=== PATIENT | male | born 1970 | race African-American/Black ===

== ENCOUNTER 2019-11-20 16:28 | Inpatient (IN) | payer MEDICAID ==
[~2019-11-20] VITALS: Ht 182.9 cm; Wt 79.5 kg
[2019-11-20] MEDS ORDERED: acetaminophen 325mg tablet PO STA (16:48)
[2019-11-20] MEDS ORDERED: normal saline 1000ML IV soln IV ONE (16:50)
[2019-11-20] MEDS ORDERED: CefTRIAXone 2gm/D5W 50ml 50 ML IV ONE (16:50)
[2019-11-20] MEDS ORDERED: azithromycin/NS 500mg/250ml 250 ML IV ONE (17:20)
[2019-11-20] MEDS ORDERED: dexamethasone sod phosphate 10mg/ml inj IV STA (17:35)
[2019-11-20 17:55] LABS: BASOPHILS # (AUTO) 0.1 X10'3 (0-0.2); BASOPHILS % (AUTO) 0.4 % (0-1); EOSINOPHILS % (AUTO) 0 % (0-6); HEMATOCRIT 32.5 % (42.0-52.0); HEMOGLOBIN 11.1 g/dl (14.0-17.9); LYMPHOCYTES # (AUTO) 1.3 X10'3 (1.1-4.8); LYMPHOCYTES % (AUTO) 8.6 % (21-51); MEAN CORPUSCULAR HEMOGLOBIN 31.7 PG (27.0-31.0); MEAN CORPUSCULAR VOLUME 93.2 FL (78-98); MEAN PLATELET VOLUME 7.3 FL (7.4-10.4); MONOCYTES # (AUTO) 2.1 X10'3 (0-0.9); NEUTROPHILS # (AUTO) 11.8 X10'3 (1.8-7.7); PLATELET COUNT 242 X10'3 (140-440); RED BLOOD COUNT 3.49 X10'6 (4.70-6.10); RED CELL DISTRIBUTION WIDTH 13.5 % (11.5-14.5); WHITE BLOOD COUNT 15.3 X10'3 (4.5-11.0)
[2019-11-20 18:05] LABS: ALANINE AMINOTRANSFERASE 44 U/L (12-78); ALBUMIN 2.5 G/DL (3.4-5.0); ALBUMIN/GLOBULIN RATIO 0.5 (1.1-1.5); ALKALINE PHOSPHATASE 70 IU/L (46-116); ANION GAP 12 (8-16); ASPARTATE AMINO TRANSFERASE 50 U/L (10-37); BILIRUBIN,TOTAL 0.8 MG/DL (0.1-1.0); BLOOD UREA NITROGEN 11 MG/DL (7-18); CALCIUM 8.7 MG/DL (8.5-10.1); CHLORIDE 94 MMOL/L (99-107); CREATININE 1.37 MG/DL (0.60-1.10); GLUCOSE 109 MG/DL (70-104); POTASSIUM 3.2 MMOL/L (3.5-5.1); SODIUM 131 MMOL/L (135-145); TOTAL CARBON DIOXIDE 25.3 MMOL/L (24-32); TOTAL PROTEIN 7.2 G/DL (6.4-8.2); eGFR 55 ML/MIN
[2019-11-20] MEDS ORDERED: NO HOME MEDS (19:33)
[2019-11-20] MEDS ORDERED: ipratropium/albuterol 3ml nebule NEB ONE (20:05)
[2019-11-20] MEDS ORDERED: methylPREDNISolone sod succ 125mg/2ml vial IV ONE (20:05)
[2019-11-20] MEDS ORDERED: magnesium hydroxide 30ml (MOM) UD suspension PO PRN (20:15)
[2019-11-20] MEDS ORDERED: acetaminophen 325mg tablet PO PRN (20:15)
[2019-11-20] MEDS ORDERED: ondansetron/PF 4mg/2ml inj IV PRN (20:15)
[2019-11-20] MEDS ORDERED: mag hydrox/Alum hydrox/simeth 30ml oral suspension PO PRN (20:15)
[2019-11-20] MEDS ORDERED: potassium Cl 20 mEq SR tablet PO PRN (20:15)
[2019-11-20] MEDS ORDERED: potassium CL 10mEq/100ml bag 100 ML IV PRN ×2 (20:15)
[2019-11-20 20:40] LABS: CLARITY,URINE CLEAR (Clear); COLOR,URINE STRAW (Yellow); GLUCOSE, URINE NEGATIVE (Neg); KETONES,URINE NEGATIVE (Neg); LEUKOCYTE ESTERASE ,URINE NEGATIVE (Neg); NITRITES, URINE NEGATIVE (Neg); OCCULT BLOOD,URINE SMALL (Neg); PROTEIN,URINE NEGATIVE (Neg); UROBILINOGEN,URINE 0.2 E.U/dL (0.2-1.0)
[2019-11-20 20:41] LABS: UA COLLECTION TYPE NON-SPECIFIED
[2019-11-20 20:47] LABS: BACTERIA,URINE NONE SEEN /HPF (Neg); RBC,URINE 0-2 /HPF (0-2); SQUAMOUS EPITHELIAL CELL,UR FEW /LPF (FEW); WBC,URINE NONE SEEN /HPF (0-4)
[2019-11-20] MEDS: normal saline 1000ml 1,000 ML IV SCH (21:03)
--- NOTE | 2019-11-20 22:45 | NUR ---
Patient in room ORTHO 4006. I have received report from Bennie PEREZ and had the opportunity to ask questions and assume patient care.
[2019-11-20 23:00] VITALS: BP 120/71
--- NOTE | 2019-11-20 23:00 | NUR ---
Pt to the floor
[2019-11-20 23:46] LABS: URINE AMPHETAMINE SCREEN POSITIVE (Neg); URINE BARBITUATE SCREEN NEGATIVE (Neg); URINE BENZODIAZEPINES SCREEN NEGATIVE (Neg); URINE CANNABINOID SCREEN NEGATIVE (Neg); URINE COCAINE SCREEN NEGATIVE (Neg); URINE METHADONE SCREEN NEGATIVE (Neg); URINE OPIATE SCREEN NEGATIVE (Neg); URINE PHENCYCLIDINE SCREEN NEGATIVE (Neg)
[2019-11-21] MEDS: potassium Cl 20 mEq SR tablet PO PRN ×3 (02:40→20:35)
[2019-11-21] MEDS: normal saline 1000ml 1,000 ML IV SCH ×3 (06:15→22:00)
--- NOTE | 2019-11-21 06:37 | NUR ---
Patient in room ORTHO 4006. I have received report from Issa PEREZ and had the opportunity to ask questions and assume patient care.
--- NOTE | 2019-11-21 06:40 | NUR ---
Javier Boss called regarding repeat COVID, he is going to contact Dr. Chavez/Dr. Webb and let me know if it is necessary.
[2019-11-21 07:00] VITALS: BP 121/69
[2019-11-21] MEDS: heparin, porcine 5000 units/ml vial SQ SCH ×2 (07:27→20:36)
[2019-11-21] MEDS ORDERED: K and/or MAG REPLACEMENT MC SCH (08:00)
--- NOTE | 2019-11-21 08:07 | NUR ---
FAITH sent to lab.
[2019-11-21] MEDS ORDERED: pneumococcal 23-VAL P-sac vacc 25 mcg/0.5ml vial IMVAC ONE (10:00)
--- NOTE | 2019-11-21 10:02 | NUR ---
PAGER ID: [phone] MESSAGE: [id number] Rocky Junior Patient has gram positive cocci pair and chains blood cultures in AEROBIC bottle Clara [id number]
[2019-11-21] MEDS ORDERED: magnesium Cl slow-release 64mg tablet PO PRN (10:45)
[2019-11-21] MEDS ORDERED: magnesium 4gm in 100ml NS 100 ML IV PRN (10:45)
[2019-11-21] MEDS: ipratropium/albuterol 3ml nebule NEB SCH ×3 (12:38→20:13)
[2019-11-21] MEDS: methylPREDNISolone sod succ/PF 40mg inj. IV SCH ×2 (17:10→20:36)
[2019-11-21] MEDS: CefTRIAXone/D5W-Rocephin 1gm 50 ML IV SCH (17:10)
[2019-11-21] MEDS: azithromycin 250mg tablet PO SCH (17:11)
[2019-11-21 18:00] VITALS: BP 113/78
--- NOTE | 2019-11-21 18:35 | NUR ---
Patient in room ORTHO 4006. I have received report from Clara PEREZ and had the opportunity to ask questions and assume patient care.
--- NOTE | 2019-11-21 18:53 | NUR ---
Problems reprioritized. Patient report given, questions answered & plan of care reviewed with Issa PEREZ.
[2019-11-21] MEDS: K and/or MAG REPLACEMENT MC SCH (20:00)
[2019-11-21] MEDS: lactobacillus rhamnosus 10,000 MMU CELLS/CAPSULE PO SCH (20:36)
[2019-11-21 22:00] VITALS: BP 116/42
[2019-11-22] MEDS: ipratropium/albuterol 3ml nebule NEB SCH ×7 (00:06→23:21)
[2019-11-22] MEDS: methylPREDNISolone sod succ/PF 40mg inj. IV SCH ×4 (03:03→19:58)
[2019-11-22] MEDS: normal saline 1000ml 1,000 ML IV SCH ×3 (03:04→18:00)
[2019-11-22 06:10] VITALS: BP 120/50
--- NOTE | 2019-11-22 06:31 | NUR ---
Problems reprioritized. Patient report given, questions answered & plan of care reviewed with Kalie PEREZ.
[2019-11-22 06:39] LABS: BASOPHILS % (AUTO) 0.1 % (0-1); EOSINOPHILS % (AUTO) 0.1 % (0-6); HEMATOCRIT 31.4 % (42.0-52.0); HEMOGLOBIN 10.5 g/dl (14.0-17.9); LYMPHOCYTES # (AUTO) 0.6 X10'3 (1.1-4.8); LYMPHOCYTES % (AUTO) 3.8 % (21-51); MEAN CORPUSCULAR HEMOGLOBIN 31.7 PG (27.0-31.0); MEAN CORPUSCULAR HGB CONC 33.3 g/dL (33.0-36.5); MEAN CORPUSCULAR VOLUME 95.2 FL (78-98); MEAN PLATELET VOLUME 7.2 FL (7.4-10.4); MONOCYTES # (AUTO) 0.8 X10'3 (0-0.9); MONOCYTES % (AUTO) 4.8 % (2-12); NEUTROPHILS # (AUTO) 14.5 X10'3 (1.8-7.7); NEUTROPHILS % (AUTO) 91.2 % (42-75); PLATELET COUNT 286 X10'3 (140-440); RED CELL DISTRIBUTION WIDTH 13.6 % (11.5-14.5); WHITE BLOOD COUNT 15.9 X10'3 (4.5-11.0)
--- NOTE | 2019-11-22 06:44 | NUR ---
Patient in room ORTHO 4013. I have received report from Issa PEREZ and had the opportunity to ask questions and assume patient care.
[2019-11-22 06:54] LABS: ALANINE AMINOTRANSFERASE 40 U/L (12-78); ALBUMIN/GLOBULIN RATIO 0.5 (1.1-1.5); ALKALINE PHOSPHATASE 69 IU/L (46-116); ANION GAP 9 (8-16); ASPARTATE AMINO TRANSFERASE 19 U/L (10-37); BILIRUBIN,TOTAL 0.1 MG/DL (0.1-1.0); BLOOD UREA NITROGEN 13 MG/DL (7-18); BUN/CREATININE RATIO 11.4 (5.4-32.0); CALCIUM 8.7 MG/DL (8.5-10.1); CHLORIDE 108 MMOL/L (99-107); CREATININE 1.14 MG/DL (0.60-1.10); GLUCOSE 162 MG/DL (70-104); MAGNESIUM 1.9 MG/DL (1.5-2.4); PHOSPHORUS 2.5 MG/DL (2.3-4.5); POTASSIUM 3.7 MMOL/L (3.5-5.1); SODIUM 141 MMOL/L (135-145); TOTAL CARBON DIOXIDE 24.1 MMOL/L (24-32); TOTAL PROTEIN 6.4 G/DL (6.4-8.2); eGFR 82 ML/MIN
[2019-11-22] MEDS: lactobacillus rhamnosus 10,000 MMU CELLS/CAPSULE PO SCH ×2 (07:53→19:58)
[2019-11-22] MEDS: heparin, porcine 5000 units/ml vial SQ SCH ×2 (07:55→19:58)
[2019-11-22] MEDS: K and/or MAG REPLACEMENT MC SCH ×2 (08:00→20:00)
[2019-11-22 11:20] VITALS: BP 121/52
--- NOTE | 2019-11-22 11:20 | NUR ---
Missed 0700 SVN RT called to ER
[2019-11-22] MEDS: CefTRIAXone/D5W-Rocephin 1gm 50 ML IV SCH (16:33)
[2019-11-22] MEDS: azithromycin 250mg tablet PO SCH (16:33)
[2019-11-22 18:00] VITALS: BP 134/60
--- NOTE | 2019-11-22 18:33 | NUR ---
Problems reprioritized. Patient report given, questions answered & plan of care reviewed with JESIKA PEREZ.
--- NOTE | 2019-11-22 18:36 | NUR ---
Problems reprioritized. Patient report given, questions answered & plan of care reviewed with Melanie PEREZ.
--- NOTE | 2019-11-22 18:55 | NUR ---
Patient in room ORTHO 4013. I have received report from PEEWEE/ISABEL RN'S and had the opportunity to ask questions and assume patient care.
--- NOTE | 2019-11-22 20:48 | NUR ---
VERBAL REPORT GIVEN TO NAZARIO PEREZ AND CARE TURNED OVER AT THIS TIME TO HIM
[2019-11-22 22:00] VITALS: BP 84/54
[2019-11-22 23:24] VITALS: BP 134/68
[2019-11-23] MEDS: methylPREDNISolone sod succ/PF 40mg inj. IV SCH ×2 (01:19→07:37)
[2019-11-23] MEDS: ipratropium/albuterol 3ml nebule NEB SCH ×3 (02:56→11:54)
[2019-11-23] MEDS: normal saline 1000ml 1,000 ML IV SCH ×2 (04:00→07:47)
[2019-11-23 06:00] VITALS: BP 119/57
[2019-11-23 06:15] LABS: BASOPHILS % (AUTO) 0.2 % (0-1); EOSINOPHILS % (AUTO) 0 % (0-6); HEMATOCRIT 32.1 % (42.0-52.0); HEMOGLOBIN 10.7 g/dl (14.0-17.9); LYMPHOCYTES # (AUTO) 0.6 X10'3 (1.1-4.8); LYMPHOCYTES % (AUTO) 4.1 % (21-51); MEAN CORPUSCULAR HEMOGLOBIN 31.8 PG (27.0-31.0); MEAN CORPUSCULAR HGB CONC 33.4 g/dL (33.0-36.5); MEAN CORPUSCULAR VOLUME 95.2 FL (78-98); MEAN PLATELET VOLUME 6.9 FL (7.4-10.4); MONOCYTES # (AUTO) 0.4 X10'3 (0-0.9); MONOCYTES % (AUTO) 3.2 % (2-12); NEUTROPHILS # (AUTO) 12.7 X10'3 (1.8-7.7); NEUTROPHILS % (AUTO) 92.5 % (42-75); PLATELET COUNT 339 X10'3 (140-440); RED BLOOD COUNT 3.38 X10'6 (4.70-6.10); RED CELL DISTRIBUTION WIDTH 13.7 % (11.5-14.5); WHITE BLOOD COUNT 13.7 X10'3 (4.5-11.0)
--- NOTE | 2019-11-23 06:29 | NUR ---
Patient in room ORTHO 4007. I have received report from Darek and had the opportunity to ask questions and assume patient care.
[2019-11-23 06:38] LABS: ALANINE AMINOTRANSFERASE 46 U/L (12-78); ALBUMIN/GLOBULIN RATIO 0.5 (1.1-1.5); ALKALINE PHOSPHATASE 69 IU/L (46-116); ANION GAP 9 (8-16); ASPARTATE AMINO TRANSFERASE 18 U/L (10-37); BILIRUBIN,TOTAL 0.1 MG/DL (0.1-1.0); BLOOD UREA NITROGEN 14 MG/DL (7-18); BUN/CREATININE RATIO 12.8 (5.4-32.0); CALCIUM 8.9 MG/DL (8.5-10.1); CHLORIDE 108 MMOL/L (99-107); CREATININE 1.09 MG/DL (0.60-1.10); GLUCOSE 153 MG/DL (70-104); MAGNESIUM 1.8 MG/DL (1.5-2.4); PHOSPHORUS 3.4 MG/DL (2.3-4.5); SODIUM 141 MMOL/L (135-145); TOTAL CARBON DIOXIDE 23.8 MMOL/L (24-32); TOTAL PROTEIN 6.3 G/DL (6.4-8.2); eGFR 87 ML/MIN
[2019-11-23] MEDS: K and/or MAG REPLACEMENT MC SCH (06:48)
[2019-11-23] MEDS: lactobacillus rhamnosus 10,000 MMU CELLS/CAPSULE PO SCH (07:37)
[2019-11-23] MEDS: heparin, porcine 5000 units/ml vial SQ SCH (07:37)
[2019-11-23 10:00] VITALS: BP 138/61
[2019-11-23] MEDS ORDERED: ALBU8.5H8 INH (11:02)
[2019-11-23] MEDS ORDERED: CEFD300C3 PO (11:02)
[2019-11-23] MEDS ORDERED: AZIT500T9 PO (11:02)
[2019-11-23] MEDS ORDERED: LACT1CAP26 PO (11:02)
--- NOTE | 2019-11-23 13:08 | NUR ---
Safe DC. All personal items with patient. Patient left on his own will and contacted family for a ride.
== END 2019-11-23 13:10 | disposition home or self-care (01) | DRG 720 ==
LOC: ER 16:29 → ED HOLD 20:15 → ORTHO 4S 22:45
PROVIDERS: ADMIT Internal Medicine; ATTEND Family Medicine
PROC: 3E0234Z Introduction of Serum, Toxoid and Vaccine into Muscle, Percutaneous Approach (ICD-10-PCS; principal; 2019-11-21)
DX: A41.9 Sepsis, unspecified organism (principal); E86.0 Dehydration; F17.210 Nicotine dependence, cigarettes, uncomplicated; N17.9 Acute kidney failure, unspecified; E87.1 Hypo-osmolality and hyponatremia; E87.6 Hypokalemia; J18.9 Pneumonia, unspecified organism; Z20.828 Contact with and (suspected) exposure to other viral communicable diseases; Z23 Encounter for immunization
CPT/HCPCS: 36415; 71045; 80053; 80305; 81001; 83605; 83735; 84100; 84145; 85025; 87040; 87077; 87081; 87186; 87635; 93005; 94640; 94760; 96365; 96375; 99285; G0378; J0456; J0696; J1100; J1644; J2920; J2930; J7030

== ENCOUNTER 2022-10-10 04:32 | Inpatient (IN) | payer MEDICAID ==
[~2022-10-10] VITALS: Ht 182.9 cm; Wt 79.7 kg
[~2022-10-10 04:32] MED LIST: ALBU8.5H17 INH; AZIT500T9 PO; LACT1CAP26 PO
[2022-10-11] MEDS ORDERED: acetaminophen 325mg tablet PO PRN ×2 (13:10)
[2022-10-11] MEDS ORDERED: NICOTINE POLACRILEX 2 MG LOZENGE BC PRN (13:10)
[2022-10-11] MEDS ORDERED: magnesium hydroxide 30ml (MOM) UD suspension PO PRN (13:10)
--- NOTE | 2022-10-11 13:11 | NUR ---
Admission Note: Pt. was transferred from [facility] in [place]. He arrived on the unit in a wheelchair at 1311 accompanied by staff and security. Pt's belongings were inventoried and a safety check was completed by [employer]. Pt. is on a 5150 for DTS. Per 5150: You have suicidal thoughts and a plan of how you might kill yourself by "run into a car," and are hearing command audio hallucinations telling you to "kill yourself." Pt. was cooperative with the admission assessment, however presented with a lot of fatigue and had difficulty staying awake. He scores as a high risk on the [place] Suicide Risk Assessment, but is able to contract for safety while on the unit, this was endorsed to Dr. Vaca and Q 15min safety checks were ordered.
[2022-10-11 13:20] VITALS: BP 90/60; PULSE 90; RESP 16; TEMP 97.3; O2SAT 99
[2022-10-11 14:00] VITALS: RESP 16; O2SAT 99
[2022-10-11] MEDS ORDERED: OMEP40CA21 PO (16:56)
[2022-10-11] MEDS ORDERED: FLO0.4C PO (16:56)
[2022-10-11] MEDS ORDERED: DOCU-148 PO (16:56)
[2022-10-11] MEDS ORDERED: OLAN5TAB75 PO (16:56)
[2022-10-11] MEDS ORDERED: HYDR-3686 PO (16:56)
[2022-10-11] MEDS ORDERED: ONDA4TAB12 PO (16:56)
[2022-10-11] MEDS ORDERED: ESCI-8 PO (16:56)
[2022-10-11] MEDS ORDERED: albuterol 2.5 MG/3 ML nebule NEB PRN (18:16)
[2022-10-11 19:41] VITALS: BP 97/55; PULSE 75; RESP 14; TEMP 98.3; O2SAT 99
[2022-10-11 19:42] VITALS: RESP 14; O2SAT 99
[2022-10-11] MEDS: hydrOXYzine 25 MG tablet PO PRN (20:20)
[2022-10-11] MEDS: OLANZAPINE 5 MG TABLET PO SCH (20:20)
[2022-10-11] MEDS: tamsulosin 0.4mg capsule PO SCH (20:20)
[2022-10-11] MEDS: ondansetron 4mg rapidly disintigrating tab PO PRN (20:23)
[2022-10-12] VITALS (7 sets, daily range): BP systolic 90–97; BP diastolic 48–61; PULSE 60–90; RESP 14–16; TEMP 98–98.5; O2SAT 95–100
--- NOTE | 2022-10-12 01:26 | NUR ---
Nursing Progress Note: Problem: The patient admitted 5150 for being a danger to himself because he was suicidal with a plan to be hit by a car. He reports command auditory hallucinations telling him to harm himself. Interventions: The patient is on q 15 minute safety checks. One to one with the patient to assess for self harm risk, severity of depressive symptoms and severity of voices. Educated the patient to his medications. Made him aware of the unit routine for the night. PRN atarax and prn zofran given at HS. Response: The patient was quiet, withdrawn but pleasant when approached for the evening assignment. His replies were minimal and soft. He appears fatigued. His affect was blunted. He acknowledged that he felt depressed and suicidal. He denied that he had a plan to harm himself. He did state he is having command auditory hallucinations telling him to kill himself, paranoia and having visual hallucinations of "cartoons" He appeared adequately groomed and was dressed appropriately for the unit. Plan: Continue hospitalization for further evaluation, treatment and stabilization
[2022-10-12] MEDS: pantoprazole 40mg Tablet.DR PO SCH (08:13)
[2022-10-12] MEDS: ESCITALOPRAM OXALATE 5 MG TABLET PO SCH (08:13)
[2022-10-12] MEDS: docusate sod 100mg capsule PO SCH (08:13)
[2022-10-12] MEDS: nicotine 21mg patch - 24 hr TD SCH (08:14)
[2022-10-12 08:24] LABS: CHOL/HDL RATIO 2.4 (0.00-4.99); CHOLESTEROL 137 MG/DL (0-200); HDL CHOLESTEROL 58 MG/DL (35-60); LDL CHOLESTEROL 69 MG/DL (50-100); TRIGLYCERIDES 41 MG/DL (20-135)
--- NOTE | 2022-10-12 08:28 | NUR ---
Malnutrition Consult: Pt admit for SI reports decreased appetite and 20 pound wt loss per EMR. Pt PO 100% first two regular diet meals w/ normal strength, no edema/wounds, and current wt appropriate w/ no prior scaled wt hx in EMR. Pt lacks minimum two malnutrition criteria at this time. Addendum: 10/12/22 at [address] Amended: Links added.
[2022-10-12] MEDS: hydrOXYzine 25 MG tablet PO PRN (08:38)
[2022-10-12] MEDS: ondansetron 4mg rapidly disintigrating tab PO PRN ×2 (08:42→20:33)
[2022-10-12 08:51] LABS: HEMOGLOBIN A1C 5.4 % (4.5-6.2)
--- NOTE | 2022-10-12 12:54 | NUR ---
PSYCHOSOCIAL ASSESSMENT Met with Pt. today. Pt was admitted on 5150 for being a danger to himself because he was suicidal with a plan to be hit by a car. He reports command auditory hallucinations telling him to harm himself for the past week. Pt reported that he missed his daughters birthday alliance party and felt guilty. Pt. reported he has been chronically homeless for the past 5 years and using meth (utox confirms this). Pt. moved to the [facility] from [place] to be near his children as their mother was from there. He was diagnosed with Schizophrenia in 2012. He has no social support in [place] besides his 23 year old daughter Tom and his 18 year old son. He reported he would like to obtain support with therapy, case management, and medications and attempted to start the Intake process at [facility]. He wants to detox and go to rehab. This Industrial Therapist gave him the phone number to call for his insurance to do an Intake for rehabs in [place] and this area. Beatrice Felix LCSW
--- NOTE | 2022-10-12 16:22 | NUR ---
Nursing Progress Note: Rocky Problem: The patient admitted 5150 for being a danger to himself because he was suicidal with a plan to be hit by a car. He reports command auditory hallucinations telling him to harm himself. Interventions: Maintained a safe and supportive environment, ensured contract for safety, provided clear and simple instructions, attempted to orient to reality, medication administration/education/monitoring, therapeutic communication, and maintained Q 15min safety checks. Response: Pt. received asleep and awoke to take his medications. Pt. endorses SI, without a plan, endorses AH and VH stating I see cartoons and hear voices telling me to harm myself Pt. presents with good eye contact, extremely fatigued, and c/o 7/10 anxiety and nausea; PRN Atarax and Zofran admin with good results. Pt. spent most of the shift asleep in his room requiring prompts to attend all meals and snack times. Pt. is cooperative, speaks in a soft voice, and interacts well with staff. He ate all meals in the community room with cohorts, but keeps to himself. Pt has fair hygiene, several scars on his face and wears unit scrubs. Plan: Continue hospitalization for further evaluation, treatment and stabilization
--- NOTE | 2022-10-12 18:26 | NUR ---
RN TRAUMA documentation: I have reviewed all intervention and assessments performed and documented by ANI Jade.
[2022-10-12] MEDS: OLANZAPINE 5 MG TABLET PO SCH (20:33)
[2022-10-12] MEDS: tamsulosin 0.4mg capsule PO SCH (20:33)
--- NOTE | 2022-10-12 23:30 | NUR ---
Nursing Progress Note: Rocky Problem: The patient admitted 5150 for being a danger to himself because he was suicidal with a plan to be hit by a car. He reports command auditory hallucinations telling him to harm himself. Interventions: Maintained a safe and supportive environment, ensured contract for safety, provided clear and simple instructions, attempted to orient to reality, medication administration/education/monitoring, therapeutic communication, and maintained Q 15min safety checks. Response: Patient was received sleeping in his room at shift change. Patient came out of his room for snack. Patient returned to his room and isolated the rest of this shift. Patient shares he arrived on the unit earlier today and states he is still having suicidal thoughts. Patient reports he does not have a plan at the moment. Patient denies HI. Patient reports auditory and visual hallucinations. Patient reports he see cartoon like creatures and hears voices that tell him to kill himself. Patient reports his sleep the previous days was not good and states he has slept a lo9t this day. Patient requested PRN Zofran stating he was nauseous, PRN was given. Patient was compliant with scheduled medications and returned to bed before lights out. Plan: Continue hospitalization for further evaluation, treatment and stabilization
--- NOTE | 2022-10-13 03:58 | NUR ---
JAVA ENGINEER documentation: I have reviewed with all interventions, assessments performed and documented by Kalie LAW.
[2022-10-13 07:00] VITALS: RESP 16; O2SAT 95
[2022-10-13] MEDS: hydrOXYzine 25 MG tablet PO PRN ×2 (08:03→21:37)
[2022-10-13] MEDS: pantoprazole 40mg Tablet.DR PO SCH (08:03)
[2022-10-13] MEDS: ESCITALOPRAM OXALATE 5 MG TABLET PO SCH (08:03)
[2022-10-13] MEDS: docusate sod 100mg capsule PO SCH (08:03)
[2022-10-13] MEDS: nicotine 21mg patch - 24 hr TD SCH (08:04)
[2022-10-13] MEDS: ondansetron 4mg rapidly disintigrating tab PO PRN ×2 (08:19→20:57)
[2022-10-13 08:30] VITALS: BP 93/58; PULSE 68; RESP 16; TEMP 98; O2SAT 100
[2022-10-13 14:33] VITALS: PULSE 88; RESP 16; O2SAT 98
[2022-10-13 15:02] LABS: HBSAG SCREEN Negative (Negative); HEP B CORE AB, TOT Negative (Negative)
--- NOTE | 2022-10-13 15:31 | NUR ---
Nursing Progress Note: Rocky Problem: The patient admitted 5150 for being a danger to himself because he was suicidal with a plan to be hit by a car. He reports command auditory hallucinations telling him to harm himself. Interventions: Maintained a safe and supportive environment, ensured contract for safety, provided clear and simple instructions, attempted to orient to reality, medication administration/education/monitoring, therapeutic communication, and maintained Q 15min safety checks. Response: Pt. received asleep and awoke to take his medications which he took without hesitation. Pt. endorses AH and VH stating I hear voices telling me to kill myself, and I see like cartoon like people but he denies SI, HI, he has no DC plan at this time. Pt. reported increased anxiety and was given PRN Atarax with good results. After breakfast pt. reported nausea and requested PRN Zofran. Pt. has good eye contact, speaks in a soft mumbled voice, and is guarded at times. Pt. ate all meals and attended snack times, but required rounding as he was asleep. Pt. sits among cohorts at meals times, but doesnt engage socially. He has fair hygiene and wears unit scrubs. Plan: Continue hospitalization for further evaluation, treatment and stabilization
[2022-10-13 19:00] VITALS: BP 92/55; PULSE 75; RESP 16; TEMP 98.2; O2SAT 98
[2022-10-13 20:53] VITALS: PULSE 82; RESP 16; O2SAT 98
[2022-10-13] MEDS ORDERED: OLANZAPINE 5 MG TABLET PO SCH (21:00)
[2022-10-13] MEDS: tamsulosin 0.4mg capsule PO SCH (21:27)
--- NOTE | 2022-10-14 01:08 | NUR ---
Nursing Progress Note: Rocky Problem: The patient admitted 5150 for being a danger to himself because he was suicidal with a plan to be hit by a car. He reports command auditory hallucinations telling him to harm himself. Interventions: Maintained a safe and supportive environment, ensured contract for safety, provided clear and simple instructions, attempted to orient to reality, medication administration/education/monitoring, therapeutic communication, and maintained Q 15min safety checks. Response: Received pt. in bed sleeping at change of shift. Pt. awaken and reported feeling nauseated to staff. PRN zofran was provided w/effectiveness. Pt. is pleasant and cooperative but isolative. He reports SI w/out a plan and AH which are telling him to harm himself. Pt. also reports 8/10 anxiety and was provided PRN atarax. Pt. was given a late snack after taking night medications and is thankful. Nicotine patch removed. Pt. remained in room and went back to sleep. Plan: Continue hospitalization for further evaluation, treatment and stabilization
[2022-10-14 07:15] VITALS: RESP 16; O2SAT 99
[2022-10-14] MEDS: nicotine 21mg patch - 24 hr TD SCH (07:42)
[2022-10-14] MEDS: ESCITALOPRAM OXALATE 5 MG TABLET PO SCH (07:42)
[2022-10-14] MEDS: docusate sod 100mg capsule PO SCH (07:43)
[2022-10-14] MEDS: pantoprazole 40mg Tablet.DR PO SCH (07:43)
[2022-10-14 08:05] VITALS: BP 93/57; PULSE 67; RESP 16; TEMP 97.5; O2SAT 99
[2022-10-14 10:36] VITALS: PULSE 70; RESP 14; O2SAT 97
--- NOTE | 2022-10-14 11:55 | NUR ---
Initial: Pt admit for psychosis. Currently on a regular diet and eating well, documented with 100% PO intake since admit meeting estimated nutrient needs. LBM 10/14 per EMR, receiving routine bowel care. No nutrition intervention implemented at this time. Will continue to follow. Recommendations: 1) Continue regular diet 2) Routine bowel care 3) Weekly scaled weights Addendum: 10/14/22 at [address] Amended: Links added.
[2022-10-14] MEDS: ondansetron 4mg rapidly disintigrating tab PO PRN ×2 (13:09→20:28)
--- NOTE | 2022-10-14 16:33 | NUR ---
Nursing Progress Note: Rocky Problem: The patient admitted 5150 for being a danger to himself because he was suicidal with a plan to be hit by a car. He reports command auditory hallucinations telling him to harm himself. Interventions: Maintained a safe and supportive environment, ensured contract for safety, provided clear and simple instructions, attempted to orient to reality, medication administration/education/monitoring, therapeutic communication, and maintained Q 15min safety checks. Response: Patient was received sleeping at beginning of shift. Patient woke up to take morning medications and retuned to bed. Patient self isolated in room except for coming out for showers and meals. Patient is polite but quiet. Patient was encouraged to come out and participate in group. Patient was polite and took all medication without issue. Plan: Continue hospitalization for further evaluation, treatment and stabilization Addendum: 10/14/22 at 1749 by Jourdan Tadeo) CHRIS CARDIOLOGY TECH documentation: I have reviewed and agree with all interventions, assessments performed and documented by the CARDIOLOGY TECH.
[2022-10-14 19:00] VITALS: BP 108/57; PULSE 76; RESP 16; TEMP 97.8; O2SAT 100
[2022-10-14 20:57] VITALS: PULSE 69; RESP 14; O2SAT 98
[2022-10-14] MEDS: OLANZAPINE 5 MG TABLET PO SCH (21:01)
[2022-10-14] MEDS: tamsulosin 0.4mg capsule PO SCH (21:01)
[2022-10-14] MEDS: hydrOXYzine 25 MG tablet PO PRN (21:14)
--- NOTE | 2022-10-15 01:26 | NUR ---
Nursing Progress Note: Rocky Problem: The patient admitted 5150 for being a danger to himself because he was suicidal with a plan to be hit by a car. He reports command auditory hallucinations telling him to harm himself. Interventions: Maintained a safe and supportive environment, ensured contract for safety, provided clear and simple instructions, attempted to orient to reality, medication administration/education/monitoring, therapeutic communication, and maintained Q 15min safety checks. Response: Pt. received lying awake in bed at change of shift. When this technical proposal writer entered pts. room he c/o feeling nauseated. PRN zofran provided w/effectiveness. Pt. is pleasant and cooperative. He continues to isolate to his room and sleeps. Pt. continues feeling SI w/out a plan and expresses AH telling him to harm himself. He took night medications without issue and PRN atarax provided for anxiety. Nicotine patch removed. Plan: Continue hospitalization for further evaluation, treatment and stabilization
[2022-10-15 07:55] VITALS: BP 95/52; PULSE 64; RESP 16; TEMP 97.6; O2SAT 95
[2022-10-15] MEDS: pantoprazole 40mg Tablet.DR PO SCH (08:18)
[2022-10-15] MEDS: docusate sod 100mg capsule PO SCH (08:18)
[2022-10-15] MEDS: ESCITALOPRAM OXALATE 5 MG TABLET PO SCH (08:19)
[2022-10-15] MEDS: ondansetron 4mg rapidly disintigrating tab PO PRN ×2 (08:23→21:27)
[2022-10-15] MEDS: hydrOXYzine 25 MG tablet PO PRN (08:24)
[2022-10-15] MEDS: nicotine 21mg patch - 24 hr TD SCH (08:39)
[2022-10-15 16:12] VITALS: PULSE 66; RESP 16; O2SAT 97
--- NOTE | 2022-10-15 17:09 | NUR ---
NURSING PROGRESS NOTE Problem: The patient admitted 5150 for being a danger to himself because he was suicidal with a plan to be hit by a car. He reports command auditory hallucinations telling him to harm himself. Interventions: Maintained a safe and supportive environment, ensured contract for safety, provided clear and simple instructions, attempted to orient to reality, medication administration/education/monitoring, therapeutic communication, and maintained Q 15min safety checks. Response: Received patient sleeping at shift change. Pt is awoken to eat breakfast and take morning medication. Pt is compliant with both. Pt isolates to his room coming out only for meals. Pt requested PRN Atarax and Zofran this morning r/t nausea to anxiety. Pt reports having "Nightmares," causing him not to sleep well. Web Designer Developer explaine to patient if he couldn't sleep to notify his HS nurse. Pt is guarded, but answers questions minimally and quietly. Pt endorses CAH to harm himself. Pt is able to contract for safety. Pt is encouraged to come out of his room, but opts not too. Pt's bed linens changed, states he showered yesterday. Plan: Continue hospitalization for further evaluation, treatment and stabilization
[2022-10-15 19:00] VITALS: BP 103/59; PULSE 70; RESP 14; TEMP 97.7; O2SAT 98
[2022-10-15 20:10] VITALS: PULSE 86; RESP 18; O2SAT 97
[2022-10-15] MEDS: OLANZAPINE 5 MG TABLET PO SCH (21:26)
[2022-10-15] MEDS: tamsulosin 0.4mg capsule PO SCH (21:26)
--- NOTE | 2022-10-16 04:11 | NUR ---
Nursing Progress Note: Rocky Problem: The patient admitted 5150 for being a danger to himself because he was suicidal with a plan to be hit by a car. He reports command auditory hallucinations telling him to harm himself. Interventions: Maintained a safe and supportive environment, ensured contract for safety, provided clear and simple instructions, attempted to orient to reality, medication administration/education/monitoring, therapeutic communication, and maintained Q 15min safety checks. Response: Received patient resting in his room with eyes closed and no apparent signs of distress. Patient is still reporting suicidal thoughts with no plan currently. Patient denies SI and HI. Patient reports A/V hallucinations and describes them as command hallucinations. Stating they tell him to hurt himself. Patient describes visual hallucinations as cartoon like creatures. Patient reports his sleep is good and appetite is great. Patient was noted in the community room watching TV. Patient was medication compliant. Patient requested PRN Zofran for stating he was feeling nauseas. Patient was given PRN. At lights out patient was noted still awake in room and appeared to be responding to internal stimuli. Patient was noted sleeping shortly after. Plan: Continue hospitalization for further evaluation, treatment and stabilization
[2022-10-16 07:22] VITALS: BP 97/58; PULSE 63; RESP 16; TEMP 97; O2SAT 98
[2022-10-16] MEDS: pantoprazole 40mg Tablet.DR PO SCH (08:04)
[2022-10-16] MEDS: nicotine 21mg patch - 24 hr TD SCH (08:04)
[2022-10-16] MEDS: ESCITALOPRAM OXALATE 5 MG TABLET PO SCH (08:04)
[2022-10-16] MEDS: docusate sod 100mg capsule PO SCH (08:04)
[2022-10-16 09:20] VITALS: PULSE 71; RESP 16; O2SAT 98
[2022-10-16] MEDS: ondansetron 4mg rapidly disintigrating tab PO PRN ×2 (13:53→20:56)
[2022-10-16] MEDS: hydrOXYzine 25 MG tablet PO PRN ×2 (13:54→20:56)
--- NOTE | 2022-10-16 16:17 | NUR ---
NURSING PROGRESS NOTE Problem: The patient admitted 5150 for being a danger to himself because he was suicidal with a plan to be hit by a car. He reports command auditory hallucinations telling him to harm himself. Interventions: Maintained a safe and supportive environment, ensured contract for safety, provided clear and simple instructions, attempted to orient to reality, medication administration/education/monitoring, therapeutic communication, and maintained Q 15min safety checks. Response: Received patient sleeping at shift change. Pt is awoken to eat breakfast and take morning medication. Pt is compliant with both. Pt continues to isolate to his room coming out only for meals and snacks. Pt presents with a flat affect and minimal interaction. Pt is encouraged throughout the day to join unit milieu. Pt participated in 1500 snack that included chili dogs and ice cream sandwiches. Pt stayed in group room for a short time until returning to his bed. Continues to endorse CAH to harm himself. Pt is able to contract for safety. Patient requested Atarax and Zofran after lunch c/o anxiety and nausea r/t AH. Pt reports he will call [facility] tomorrow and schedule an appointment. Plan: Continue hospitalization for further evaluation, treatment and stabilization
[2022-10-16 20:00] VITALS: BP 95/56; PULSE 72; RESP 14; TEMP 98.4; O2SAT 99
[2022-10-16] MEDS: tamsulosin 0.4mg capsule PO SCH (20:55)
[2022-10-16] MEDS: OLANZAPINE 5 MG TABLET PO SCH (20:56)
--- NOTE | 2022-10-17 03:54 | NUR ---
Nursing Progress Note: Rocky Problem: The patient admitted 5150 for being a danger to himself because he was suicidal with a plan to be hit by a car. He reports command auditory hallucinations telling him to harm himself. Interventions: Maintained a safe and supportive environment, ensured contract for safety, provided clear and simple instructions, attempted to orient to reality, medication administration/education/monitoring, therapeutic communication, and maintained Q 15min safety checks. Response: Received patient awake in the community room at shift change. Patient looks to be in better spirits today. Patient stayed out of his room more than usual. Patient was noted interacting appropriately with peers. Patient watched TV. Patient denies HI. Patient denies SI, auditory hallucinations and visual hallucinations today. Patient reports some anxiety and requested PRN. Patient requested PRN for nausea with his scheduled medications. Patient was given PRN atarax for anxiety and Zofran for nausea. Patient was med compliant and went to bed shortly after. Plan: Continue hospitalization for further evaluation, treatment and stabilization
--- NOTE | 2022-10-17 04:11 | NUR ---
PASTE MAKER documentation: I have reviewed all intervention and assessments performed and documented by ANI Rodriguez.
[2022-10-17 07:30] VITALS: BP 98/46; PULSE 66; RESP 14; TEMP 98.2; O2SAT 98
[2022-10-17] MEDS: ESCITALOPRAM OXALATE 5 MG TABLET PO SCH (07:59)
[2022-10-17] MEDS: pantoprazole 40mg Tablet.DR PO SCH (07:59)
[2022-10-17] MEDS: docusate sod 100mg capsule PO SCH (07:59)
[2022-10-17] MEDS: nicotine 21mg patch - 24 hr TD SCH (08:02)
[2022-10-17] MEDS: hydrOXYzine 25 MG tablet PO PRN ×2 (11:21→21:03)
[2022-10-17] MEDS: ondansetron 4mg rapidly disintigrating tab PO PRN ×2 (11:21→21:01)
[2022-10-17 15:32] VITALS: PULSE 75; RESP 16; O2SAT 97
--- NOTE | 2022-10-17 17:44 | NUR ---
NURSING PROGRESS NOTE Problem: The patient admitted 5150 for being a danger to himself because he was suicidal with a plan to be hit by a car. He reports command auditory hallucinations telling him to harm himself. Interventions: Maintained a safe and supportive environment, ensured contract for safety, provided clear and simple instructions, attempted to orient to reality, medication administration/education/monitoring, therapeutic communication, and maintained Q 15min safety checks. Response: RN received pt. asleep in bed at start of shift. Pt. awoke for breakfast and took all medications. Pt. isolates to his room most of the day, often found sleeping. 1:1 done at bedside, pt. denies SI/HI, VH. Pt. reports command auditory hallucinations that tell him to kill himself. Pt. reports feeling optimistic about the future. Pt. c/o constipation and given MOM along with prune juice, awaiting effect. Plan: Continue hospitalization for further evaluation, treatment and stabilization
[2022-10-17 19:38] VITALS: BP 109/67; PULSE 71; RESP 16; TEMP 97.3; O2SAT 100
[2022-10-17] MEDS: OLANZAPINE 5 MG TABLET PO SCH (20:58)
[2022-10-17] MEDS: tamsulosin 0.4mg capsule PO SCH (20:58)
[2022-10-17 21:23] VITALS: PULSE 79; RESP 18; O2SAT 96
--- NOTE | 2022-10-18 00:57 | NUR ---
NURSING PROGRESS NOTE Problem: The patient admitted 5150 for being a danger to himself because he was suicidal with a plan to be hit by a car. He reports command auditory hallucinations telling him to harm himself. Interventions: Maintained a safe and supportive environment, ensured contract for safety, provided clear and simple instructions, attempted to orient to reality, medication administration/education/monitoring, therapeutic communication, and maintained Q 15min safety checks. Response: Patient is pleasant and cooperative with care; compliant with medication. PRNs Zofran for nausea and Atarax for anxiety provided this shift. Patient denied SI, HI; endorsed A/VH. He expressed feeling like his hallucinations are "less bothersome" and "improving" since his admission. Patient self isolative but participated in HS snack and briefly watched TV in the community room. Patient showered prior to bed; observed sleeping and does not appear to be having difficulty. Plan: Continue hospitalization for further evaluation, treatment and stabilization
--- NOTE | 2022-10-18 03:37 | NUR ---
DIRECTOR INSTITUTION documentation: I have reviewed all interventions, assessments performed and documented by Leona LAW.
[2022-10-18 07:30] VITALS: RESP 12; O2SAT 96
[2022-10-18 07:46] VITALS: BP 96/51; PULSE 63; RESP 12; TEMP 97.8; O2SAT 96
[2022-10-18] MEDS: pantoprazole 40mg Tablet.DR PO SCH (07:46)
[2022-10-18] MEDS: docusate sod 100mg capsule PO SCH (07:46)
[2022-10-18] MEDS: ESCITALOPRAM OXALATE 5 MG TABLET PO SCH (07:46)
[2022-10-18] MEDS: nicotine 21mg patch - 24 hr TD SCH (07:50)
[2022-10-18] MEDS: ondansetron 4mg rapidly disintigrating tab PO PRN ×3 (08:14→21:39)
[2022-10-18] MEDS: hydrOXYzine 25 MG tablet PO PRN ×2 (08:14→21:39)
[2022-10-18] MEDS: loperamide 2mg capsule PO PRN (13:59)
[2022-10-18 14:53] VITALS: PULSE 74; RESP 16; O2SAT 97
--- NOTE | 2022-10-18 15:11 | NUR ---
Faxed requested records to [facility] with Rocky's consent. KARL Barker
--- NOTE | 2022-10-18 18:02 | NUR ---
NURSING PROGRESS NOTE Problem: The patient admitted 5150 for being a danger to himself because he was suicidal with a plan to be hit by a car. He reports command auditory hallucinations telling him to harm himself. Interventions: Maintained a safe and supportive environment, ensured contract for safety, provided clear and simple instructions, attempted to orient to reality, medication administration/education/monitoring, therapeutic communication, and maintained Q 15min safety checks. Response: RN received pt. asleep in bed at start of shift. Pt. awoke for breakfast and took all medications. Pt. isolates to his room most of the day, often found sleeping. 1:1 done at bedside, pt. denies SI/HI. Pt. continues to report command auditory hallucinations that tell him to kill himself. Pt. also reports VH, stating he sees a cartoon playing out in front of him. Pt. reports he is trying to get into a rehab program, but states he would like to be discharged this weekend for his sons graduation democrat. In the afternoon pt. c/o diarrhea and nausea, pt. given Imodium along with Zofran with good effect. Plan: Continue hospitalization for further evaluation, treatment and stabilization
[2022-10-18 19:00] VITALS: BP 100/70; PULSE 75; RESP 16; TEMP 98.4; O2SAT 99
[2022-10-18] MEDS: OLANZAPINE 5 MG TABLET PO SCH (21:33)
[2022-10-18] MEDS: tamsulosin 0.4mg capsule PO SCH (21:33)
--- NOTE | 2022-10-19 04:02 | NUR ---
NURSING PROGRESS NOTE Problem: The patient admitted 5150 for being a danger to himself because he was suicidal with a plan to be hit by a car. He reports command auditory hallucinations telling him to harm himself. Interventions: Maintained a safe and supportive environment, ensured contract for safety, provided clear and simple instructions, attempted to orient to reality, medication administration/education/monitoring, therapeutic communication, and maintained Q 15min safety checks. Response: Patient is pleasant and cooperative with care; compliant with medication. PRN Atarax for anxiety and Zofran for nausea provided per patient's request. Nicotine patch removed. Patient continues to endorse A/VH; denied SI, HI and no apparent delusions expressed. Patient social with peers, walked the unit, watched TV and participated in HS snack prior to bed; observed sleeping and does not appear to be having difficulty. Plan: Continue hospitalization for further evaluation, treatment and stabilization
--- NOTE | 2022-10-19 04:45 | NUR ---
ASSESSMENT MANAGER documentation: I have reviewed all interventions, assessments performed and documented by [place] LAW.
[2022-10-19 07:45] VITALS: BP 118/62; PULSE 69; RESP 16; TEMP 98.5; O2SAT 98
[2022-10-19] MEDS: ESCITALOPRAM OXALATE 5 MG TABLET PO SCH (08:21)
[2022-10-19] MEDS: pantoprazole 40mg Tablet.DR PO SCH (08:22)
[2022-10-19] MEDS: docusate sod 100mg capsule PO SCH (08:22)
[2022-10-19] MEDS: nicotine 21mg patch - 24 hr TD SCH (08:23)
[2022-10-19 14:48] VITALS: PULSE 81; RESP 16; O2SAT 98
[2022-10-19] MEDS: hydrOXYzine 25 MG tablet PO PRN ×2 (15:26→20:53)
[2022-10-19] MEDS: ondansetron 4mg rapidly disintigrating tab PO PRN ×2 (15:27→21:25)
--- NOTE | 2022-10-19 16:19 | NUR ---
NURSING PROGRESS NOTE Problem: The patient admitted 5150 for being a danger to himself because he was suicidal with a plan to be hit by a car. He reports command auditory hallucinations telling him to harm himself. Interventions: Maintained a safe and supportive environment, ensured contract for safety, provided clear and simple instructions, attempted to orient to reality, medication administration/education/monitoring, therapeutic communication, and maintained Q 15min safety checks. Response: Patient was found sleeping at beginning of shift. Patient slept until getting up for breakfast. Patient participated and took medications before retuning to bed. Later patient got up and asked for prn Atrax and Zofran. Patient then asked when he could be discharged. Patient was reminded that he is voluntary and can leave when he is ready. Patient stated he was ready and walked away. Patient was observed sitting in community room watching tv. Patient took prn medications and retuned to watching tv. Patient stated he will talk to the doctor tomorrow about leaving. Plan: Continue hospitalization for further evaluation, treatment and stabilization
[2022-10-19] MEDS: mag hydrox/Alum hydrox/simeth 30ml oral suspension PO PRN ×2 (16:37→20:40)
--- NOTE | 2022-10-19 17:58 | NUR ---
BAG GRADER DOCUMENTATION I have reviewed Etienne BAG GRADER documentation.
[2022-10-19 19:59] VITALS: BP 101/64; PULSE 78; RESP 16; TEMP 98.2; O2SAT 98
[2022-10-19] MEDS: tamsulosin 0.4mg capsule PO SCH (20:41)
[2022-10-19] MEDS: simethicone 80mg chew tab PO SCH (20:41)
[2022-10-19] MEDS: OLANZAPINE 5 MG TABLET PO SCH (20:41)
[2022-10-19] MEDS: prazosin 1mg capsule PO SCH (20:50)
[2022-10-19 21:20] VITALS: PULSE 70; RESP 16; O2SAT 98
--- NOTE | 2022-10-20 03:06 | NUR ---
NURSING PROGRESS NOTE Problem: The patient admitted 5150 for being a danger to himself because he was suicidal with a plan to be hit by a car. He reports command auditory hallucinations telling him to harm himself. Interventions: Maintained a safe and supportive environment, ensured contract for safety, provided clear and simple instructions, attempted to orient to reality, medication administration/education/monitoring, therapeutic communication, and maintained Q 15min safety checks. Response: Patient is pleasant and cooperative with care; compliant with medication. PRNs Maalox for c/o indigestion, Zofran for nausea and Atarax for anxiety provided this shift. N/O for simethicone d/t recurring indigestion obtained. also received N/O for Prazosin for c/o nightmares but unable to give d/t BP not meeting parameters. Nicotine patch removed. Patient continues to endorse A/VH and denied SI, HI; no apparent delusions expressed. Patient observed watching TV and interacting with peers; participated in HS snack prior to bed. Patient is observed sleeping and does not appear to be having difficulty. Plan: Continue hospitalization for further evaluation, treatment and stabilization
[2022-10-20 07:00] VITALS: RESP 16; O2SAT 98
[2022-10-20 08:00] VITALS: BP 111/63; PULSE 64; RESP 16; TEMP 98.3; O2SAT 98
[2022-10-20] MEDS: pantoprazole 40mg Tablet.DR PO SCH (08:35)
[2022-10-20] MEDS: simethicone 80mg chew tab PO SCH ×3 (08:35→20:27)
[2022-10-20] MEDS: ESCITALOPRAM OXALATE 5 MG TABLET PO SCH (08:35)
[2022-10-20] MEDS: nicotine 21mg patch - 24 hr TD SCH (08:35)
[2022-10-20] MEDS: docusate sod 100mg capsule PO SCH (08:35)
[2022-10-20 08:39] VITALS: PULSE 75; RESP 16; O2SAT 97
[2022-10-20] MEDS: hydrOXYzine 25 MG tablet PO PRN ×2 (08:42→20:32)
[2022-10-20] MEDS: ondansetron 4mg rapidly disintigrating tab PO PRN ×2 (12:14→20:32)
--- NOTE | 2022-10-20 17:16 | NUR ---
Nursing Progress Note: Problem : The patient admitted 5150 for being a danger to himself because he was suicidal with a plan to be hit by a car. He reports command auditory hallucinations telling him to harm himself. Interventions : Maintained a safe and supportive environment, ensured contract for safety, provided clear and simple instructions, provided active listening and positive encouragement, and maintained Q 15min safety checks. Response : Received pt. sleeping in bed at the beginning of the shift, he was awoken to attend breakfast in the Group Room and afterwards returned back to bed. 1:1 was completed at bedside, pt. presents as cooperative, fatigued, guarded, and isolative. His affect is blunted and he responds minimally to direct questions only. Pt. denies any S/I, H/I, and no delusional statements were made. However, he endorses some ongoing depression and anxiety regarding discharge and reports he does not currently know when he is leaving or where he is going. When questioned regarding any A/V/ZHANG, pt. states, "Not really." Pt. then requested PRN Atarax and this mediation was administered with effectiveness. Pt. continued to isolate throughout much of the shift, but was more present on the unit in the afternoon. He requested PRN Zofran for nausea and this medication was administered with effectiveness. Plan : Pt. continues to require a safe and supportive environment.
[2022-10-20 19:00] VITALS: RESP 16; O2SAT 98
[2022-10-20 19:41] VITALS: PULSE 70; RESP 16; O2SAT 98
[2022-10-20 20:00] VITALS: BP 115/72; PULSE 77; RESP 16; TEMP 98.1; O2SAT 99
[2022-10-20] MEDS: tamsulosin 0.4mg capsule PO SCH (20:27)
[2022-10-20] MEDS: OLANZAPINE 5 MG TABLET PO SCH (20:27)
[2022-10-20] MEDS: prazosin 1mg capsule PO SCH (20:27)
--- NOTE | 2022-10-21 03:30 | NUR ---
Nursing Progress Note: Problem : The patient admitted 5150 for being a danger to himself because he was suicidal with a plan to be hit by a car. He reports command auditory hallucinations telling him to harm himself. Interventions : Maintained a safe and supportive environment, ensured contract for safety, provided clear and simple instructions, provided active listening and positive encouragement, and maintained Q 15min safety checks. Response : Upon introduction patient asked when he will be discharged. Patient refuses any thoughts, voices, nor hallucinations. Patient requested atarax for anxiety as well as Zofran with night time regimen. Patient remained in bed all night with no obvious distress to note. Plan : Pt. continues to require a safe and supportive environment.
[2022-10-21 07:00] VITALS: RESP 16; O2SAT 96
[2022-10-21 08:00] VITALS: BP 110/65; PULSE 68; RESP 16; TEMP 97.1; O2SAT 98
[2022-10-21 08:01] LABS: ALANINE AMINOTRANSFERASE 37 U/L (12-78); ALBUMIN/GLOBULIN RATIO 0.9 (1.1-1.5); ALKALINE PHOSPHATASE 116 IU/L (46-116); ANION GAP 7 (8-16); ASPARTATE AMINO TRANSFERASE 21 U/L (10-37); BILIRUBIN,TOTAL 0.2 MG/DL (0.1-1.0); BLOOD UREA NITROGEN 27 MG/DL (7-18); BUN/CREATININE RATIO 24.1 (10.0-20.0); CALCIUM 8.5 MG/DL (8.5-10.1); CHLORIDE 105 MMOL/L (99-107); CREATININE 1.12 MG/DL (0.60-1.10); GLUCOSE 91 MG/DL (70-104); POTASSIUM 4.1 MMOL/L (3.5-5.1); SODIUM 141 MMOL/L (135-145); TOTAL CARBON DIOXIDE 29.4 MMOL/L (24-32); TOTAL PROTEIN 6.3 G/DL (6.4-8.2); eGFR 83 ML/MIN
[2022-10-21 08:18] LABS: BASOPHILS % (AUTO) 0.4 % (0-1); EOSINOPHILS # (AUTO) 0.1 X10'3 (0-0.9); EOSINOPHILS % (AUTO) 1.7 % (0-6); HEMATOCRIT 39.7 % (42.0-52.0); HEMOGLOBIN 13.3 g/dl (14.0-17.9); LYMPHOCYTES # (AUTO) 2.9 X10'3 (1.1-4.8); LYMPHOCYTES % (AUTO) 45.7 % (21-51); MEAN CORPUSCULAR HEMOGLOBIN 31.7 PG (27.0-31.0); MEAN CORPUSCULAR HGB CONC 33.4 g/dL (33.0-36.5); MEAN CORPUSCULAR VOLUME 94.9 FL (78-98); MEAN PLATELET VOLUME 7.7 FL (7.4-10.4); MONOCYTES # (AUTO) 0.7 X10'3 (0-0.9); MONOCYTES % (AUTO) 11.3 % (2-12); NEUTROPHILS # (AUTO) 2.6 X10'3 (1.8-7.7); NEUTROPHILS % (AUTO) 40.9 % (42-75); PLATELET COUNT 199 X10'3 (140-440); RED BLOOD COUNT 4.19 X10'6 (4.70-6.10); RED CELL DISTRIBUTION WIDTH 14.4 % (11.5-14.5); WHITE BLOOD COUNT 6.4 X10'3 (4.5-11.0)
[2022-10-21] MEDS: pantoprazole 40mg Tablet.DR PO SCH (08:34)
[2022-10-21] MEDS: docusate sod 100mg capsule PO SCH (08:34)
[2022-10-21] MEDS: simethicone 80mg chew tab PO SCH ×2 (08:34→12:57)
[2022-10-21] MEDS: ESCITALOPRAM OXALATE 5 MG TABLET PO SCH (08:34)
[2022-10-21] MEDS: nicotine 21mg patch - 24 hr TD SCH (08:35)
[2022-10-21] MEDS: ondansetron 4mg rapidly disintigrating tab PO PRN (08:43)
[2022-10-21] MEDS: hydrOXYzine 25 MG tablet PO PRN (08:45)
--- NOTE | 2022-10-21 10:34 | NUR ---
DISCHARGE PLAN Rocky is discharging today. [facility] transport is scheduled to pick him up at 3 PM and take him to the [facility] in [place]. He has follow up scheduled with [facility]. KARL Barker
[2022-10-21] MEDS: loperamide 2mg capsule PO PRN (12:37)
[2022-10-21] MEDS: mag hydrox/Alum hydrox/simeth 30ml oral suspension PO PRN (12:38)
[2022-10-21] MEDS ORDERED: OMEP40CA21 PO (14:19)
[2022-10-21] MEDS ORDERED: OLAN15TA35 PO (14:19)
[2022-10-21] MEDS ORDERED: HYDR-3686 PO (14:19)
[2022-10-21] MEDS ORDERED: DOCU-148 PO (14:19)
[2022-10-21] MEDS ORDERED: ESCI20TA39 PO (14:19)
[2022-10-21] MEDS ORDERED: PRAZ1CAP5 PO (14:19)
[2022-10-21] MEDS ORDERED: tamsulosin capsule PO (14:19)
[2022-10-21] MEDS ORDERED: ALBU2.5V7 NEB (14:19)
--- NOTE | 2022-10-21 14:45 | NUR ---
Discharge Note: Pt. was discharged from the unit accompanied by this screenplay writer to the waiting car of [facility] transport. His belongings were inventoried and returned to him by [employer]. This screenplay writer reviewed pt's discharge instructions and medications with him and he reported understanding. Pt's medications were sent to his preferred pharmacy. He will be taken to the [facility] [place], and has scheduled follow-up mental health appointments with [facility]. Pt. is able to contract for safety.
== END 2022-10-21 15:54 | disposition home or self-care (01) | DRG 751 ==
LOC: ADULT MH 10-11 13:05
PROVIDERS: ADMIT Psychiatry & Neurology Psychiatry; ATTEND Psychiatry & Neurology Psychiatry
DX: F33.1 Major depressive disorder, recurrent, moderate (principal); F29 Unspecified psychosis not due to a substance or known physiological condition; F17.210 Nicotine dependence, cigarettes, uncomplicated; J44.9 Chronic obstructive pulmonary disease, unspecified; K21.9 Gastro-esophageal reflux disease without esophagitis; N40.0 Benign prostatic hyperplasia without lower urinary tract symptoms; F41.9 Anxiety disorder, unspecified; F15.10 Other stimulant abuse, uncomplicated; Z59.00 Homelessness unspecified; Z79.899 Other long term (current) drug therapy; Z65.3 Problems related to other legal circumstances; Z56.0 Unemployment, unspecified
CPT/HCPCS: 36415; 80053; 80061; 83036; 83735; 84443; 85025; 86704; 86705; 86706; 87081; 87340; 94640; 94760; A6250; Q0177